=== PATIENT | female | born 1990 | race Caucasian/White ===

== ENCOUNTER 2016-06-27 18:52 | Emergency (ER) | payer OTHER ==
[2016-06-27 19:02] VITALS: BP 108/72; PULSE 84; TEMP 98.8; BMI 25.8
--- NOTE | 2016-06-27 19:24 | PDOC ---
History of Present Illness - General History Source: Patient, Family Exam Limitations: No Limitations - History of Present Illness Initial Comments: 06/27/16 19:55 The patient is a 26 year old female with no significant past medical history who presents to the emergency department today complaining of an infected left upper arm abscess since Tuesday. The patient state that she had a cyst numbed , removed, drained, cleaned, and sutured. The patient stated that the wound became infected shortly after. She also noted that the infected area was painful and pain was exacerbated by palpations. The patient stated that the sutures were removed yesterday. The patient denies allergies, fever, chills. The patient denies chest pain and shortness of breath. The patient has no other medical concerns at this time. <Simone Newell - Last Filed: 06/27/16 21:50> <Candelaria Ying - Last Filed: 06/28/16 05:06> - General Chief Complaint: Abscess Boil Stated Complaint: LEFT UPPER ARM ABSCESS Time Seen by Provider: 06/27/16 19:21 Past History <Simone Newell - Last Filed: 06/27/16 21:50> - Psycho/Social/Smoking Cessation Hx Anxiety: No Suicidal Ideation: No Smoking History: Never smoked Hx Alcohol Use: Yes (SOCIAL) Drug/Substance Use Hx: No Substance Use Type: None <Candelaria Ying - Last Filed: 06/28/16 05:06> - Past Medical History Allergies/Adverse Reactions: Allergies Allergy/AdvReac Type Severity Reaction Status Date / Time No Known Allergies Allergy Verified 06/27/16 18:54 Home Medications: Ambulatory Orders Amoxicillin/Potassium Clav [Augmentin 875-125 Tablet] 1 each PO BID #10 tablet 06/27/16 Review of Systems - Review of Systems Able to Perform ROS?: Yes Comments:: 06/27/16 19:56 Adult Basic ROS CONSTITUTIONAL: Absent: fever, no chills, no fatigue EYES: Absent: visual changes ENT: Absent: ear pain, no sore throat CARDIOVASCULAR: Absent: chest pain, no palpitations RESPIRATORY: Absent: cough, no SOB GI: Absent: abdominal pain, no nausea, no vomiting, no constipation, no diarrhea GENITOURINARY: Absent: dysuria, no frequency, no hematuria MUSCULOSKELETAL: Absent: back pain, no arthralgia SKIN: Present: Infected abscess on upper left extremity Absent: rash NEURO: Absent: headache <AvnifrancoSimone - Last Filed: 06/27/16 21:50> *Physical Exam - Vital Signs Last Vital Signs Temp Pulse Resp BP Pulse Ox 98.8 F 84 15 108/72 100 06/27/16 18:54 06/27/16 18:54 06/27/16 18:54 06/27/16 18:54 06/27/16 18:54 - Physical Exam Comments: 06/27/16 19:56 PHYSICAL EXAM GENERAL: The patient is awake, alert, and fully oriented, in no acute distress. HEAD: Normal with no signs of trauma. EYES: Pupils equal, round and reactive to light, extraocular movements intact, sclera anicteric, conjunctiva clear with no pallor. ENT: Ears normal, nares patent, oropharynx clear without exudates. Moist mucous membranes. ` LUNGS: Breath sounds equal, clear to auscultation bilaterally. No wheeze/ crackles. HEART: Regular rate and rhythm, normal S1 and S2 without murmur or rub. ABDOMEN: Soft/nontender/nondistended. BS wnl. No guarding or rebound. No palpable masses. No hepatosplenomegaly. EXTREMITIES: Normal range of motion, No clubbing or cyanosis. NEUROLOGICAL: Cranial nerves II through XII grossly intact. Normal speech, normal gait. PSYCH: Normal mood, normal affect. SKIN: 1.0 cm by 1.5 cm shallow, non bleeding, non-fluctuant ulcer with fibrinous material at the surface 0.5 cm erythematous border minimal tenderness. Warm, Dry. <Simone Newell - Last Filed: 06/27/16 21:50> - Vital Signs Last Vital Signs Temp Pulse Resp BP Pulse Ox 98.8 F 84 15 108/72 100 06/27/16 18:54 06/27/16 18:54 06/27/16 18:54 06/27/16 18:54 06/27/16 18:54 <Candelaria Ying - Last Filed: 06/28/16 05:06> Progress Note - Progress Note Progress Note: Documentation has been prepared under my direction and personally reviewed by me in its entirety. I attest that this documented accurately reflects all work, treatment, procedures and medical decision making performed by me. <Candelaria Ying - Last Filed: 06/28/16 05:06> Medical Decision Making - Medical Decision Making As noted above, this 26-year-old woman presents with mild edema/swelling/ redness around wound of left upper arm. Patient had procedure performed in ER elsewhere (possible incision and drainage of abscess/possible removal of cyst) 4 days ago. The area was sutured after procedure. Suture removed from the wound by friend (who states she has medical training in another country) yesterday. It is unclear whether there was drainage from the wound at that time but fibrinous material was seen at the base of the wound and patient was brought here for evaluation. Exam as noted above. Small amount of this fibrinous material debrided using forceps and #15 blade. Prior to this, discharge from the wound was sent for culture and sensitivity. Patient has no history of MRSA/other resistant organism or immunocompromise. The mild cellulitis around the wound will be treated with Augmentin 875/125 twice a day for 5 days. The areas should be treated with "wet to dry" dressing changes to aid in treatment of the fibrinous material. Some gauze pads and sterile saline in syringes given to the friend of the patient who had medical training elsewhere. Instructions for "wet to dry" dressings were given to the friend, who appeared to understand the concept. Meanwhile, the patient should return to the emergency room if she has increased pain/swelling/redness of the area. She should follow-up with her general doctor within the next 3-4 days <Candelaria Ying - Last Filed: 06/28/16 05:06> *DC/Admit/Observation/Transfer - Attestations Scribe Attestion: 06/27/16 19:58 Documentation prepared by Simone Newell, acting as medical staff assistant for Candelaria Ying MD. <Simone Newell - Last Filed: 06/27/16 21:50> <Candelaria Ying - Last Filed: 06/28/16 05:06> Diagnosis at time of Disposition: Cellulitis, upper arm - Discharge Dispostion Disposition: HOME Condition at time of disposition: Stable - Prescriptions Prescriptions: Amoxicillin/Potassium Clav [Augmentin 875-125 Tablet] 1 each PO BID #10 tablet - Referrals Referrals: Jorge Cannon MD [Primary Care Provider] - - Patient Instructions Additional Instructions: wet to dry dressings twice a day as discussed augmentin 875/125 twice a day for 5 days(take with food) followup with your doctor as planned see doctor sooner or return to ER if area red/ swollen/more painful
[2016-06-27] MEDS ORDERED: AMOX TR/POT CLAV 875MG/125MG TABLETS (FP) PO ONE (20:06)
[2016-06-27] MEDS ORDERED: AMOX TR/POT CLAV 875MG/125MG TABLETS (FP) ONE (20:08)
== END 2016-06-27 20:20 | disposition home or self-care (01) ==
LOC: FER 18:52
DX: L03.114 Cellulitis of left upper limb (principal)
CPT/HCPCS: 87070; 87205; 99282-25